=== PATIENT | male | born 1935 | race Caucasian/White ===

== ENCOUNTER 2017-02-09 12:17 | Observation (INO) | payer MEDICARE, OTHER ==
[~2017-02-09] VITALS: Ht 182.9 cm; Wt 135.0 kg
[~2017-02-09 12:17] MED LIST: ARIC5TAB PO; ASPI325T PO; BUME2TAB PO; CARV6.25 PO; ENAL5TAB98 PO; FERR324T4 PO; FURO80TA3 PO; LACT20SO4 PO; LORA-392 PO; PHEN25IN IM; PROM1SUP12 PR; PROM25SU8 PO; QUET1TAB67 PO; SPIR25 PO; SUPETAB30 PO; ZOCO40TA PO
[2017-02-09 12:23] VITALS: BP 116/93; PULSE 86; RESP 17; TEMP 97.6; O2SAT 99
--- NOTE | 2017-02-09 12:41 | PD ---
HPI Chief Complaint: Bleeding Time Seen by Provider: 12:41 Travel History International Travel<30 days: No Contact w/Intl Traveler<30days: No Traveled to known affect area: No History of Present Illness HPI 81-year-old male with history of CVA, dementia, A. fib, on XARELTO, acute psychosis, presents to emergency department from the alf for evaluation. Patient was a trauma alert this morning after a fall at his residential facility. He sustained a 15 cm frontal scalp laceration. Trauma workup was essentially negative except for the laceration. This was repaired and the patient was observed and discharged back to the facility. He returns for continued bleeding of the laceration. Patient has developed a large frontal hematoma with ecchymosis extending into the superior eyelids with associated edema. Patient is a poor historian. When asked states he is "okay. " There has been no new injury. PFSH Past Medical History Atrial Fibrillation: Yes Heart Rhythm Problems: Yes (SICK SINUS SYNDROME) Cirrhosis: Yes Cerebrovascular Accident: Yes (CVA) Dementia: Yes GERD: Yes Hypertension: Yes Psychiatric: Yes (PSYCHOSIS) Respiratory: Yes (OBSTRUCTIVE SLEEP APNEA) Integumentary: Yes (CONTACT DERMATITIS LE, PARONYCHIAL ABSCESSES OF GREAT TOES) Sleep Apnea: Yes Past Surgical History AICD: Yes (2006) Cardiac Surgery: Yes (PACEMAKEER) Pacemaker: Yes Social History Alcohol Use: No Tobacco Use: No Substance Use: No Allergies-Medications (Allergen,Severity, Reaction): Coded Allergies: MRI PRECAUTION (Verified Adverse Reaction, Severe, CARDIAC PACEMAKER, ) Reported Meds & Prescriptions Reported Meds & Active Scripts Active Review of Systems ROS Limitations: Altered Mental Status, Poor Historian Physical Exam Narrative GENERAL: Obese male patient, lying in bed, in no acute distress SKIN: Focused skin assessment warm/dry. HEAD: 15 cm approximated laceration across the frontal scalp with chantelle in place. There is an area at this entry of the laceration that is a persistent trickle of blood . There is a large frontal hematoma extending the entire forehead with ecchymosis extending into the superior eyelids with associated edema. EYES: Pupils equal and round. Patient is able to open eyes. No scleral icterus. No injection or drainage. ENT: No nasal bleeding or discharge. Mucous membranes pink and moist. NECK: Trachea midline. No JVD. CARDIOVASCULAR: Regular rate and irregular rhythm. No murmur appreciated. RESPIRATORY: No accessory muscle use. Clear to auscultation. Breath sounds equal bilaterally. GASTROINTESTINAL: Abdomen soft, non-tender, nondistended. Hepatic and splenic margins not palpable. MUSCULOSKELETAL: No obvious deformities. No clubbing. No cyanosis. No edema. NEUROLOGICAL: Arousable. Unable to assess cranial nerves. Clear but limited speech. Data Data Last Documented VS Vital Signs Date Time Temp Pulse Resp B/P Pulse Ox O2 Delivery O2 Flow Rate FiO2 02/09/17 16:28 Room Air 02/09/17 16:27 78 16 149/65 98 02/09/17 12:23 97.6 Orders Iv Access Insert/Monitor (02/09/17 12:38) Wound Care (02/09/17 12:38) Hgb & Hct (02/09/17 12:38) Gelatin 12 Mm/7 Mm Top (Gelfoam 12 Mm/7 (02/09/17 15:15) Hgb & Hct (02/09/17 15:57) Admit Order (Ed Use Only) (02/09/17 16:53) Labs Laboratory Tests Test 02/09/17 02/09/17 12:55 16:00 Hemoglobin 11.7 GM/DL 10.8 GM/DL Hematocrit 36.0 % 31.9 % MDM Medical Decision Making Medical Screen Exam Complete: Yes Emergency Medical Condition: Yes Medical Record Reviewed: Yes Differential Diagnosis hypocoagulable state versus hemorrhage versus arterial bleed versus hematoma Narrative Course 81-year-old male presents to the emergency department for evaluation of persistent bleeding from a laceration sustained from a fall earlier this morning. The patient was seen and evaluated following this incident as a trauma alert. He does have a large 15 cm laceration across the frontal scalp with chantelle in place. It is well approximated. There is persistent bleeding from the center aspect of the laceration. This is a slow trickle. I have reviewed Dick arzola labs from this morning and patient's hemoglobin has stopped 11.7. I have applied pressure without success. Clotting powder was applied with minimal results. A pressure dressing is applied. Patient continues to bleed Gelfoam was applied. After 20 more minutes of pressure, it appears that the bleeding has stopped. Hemoglobin was rechecked and has dropped again to 10.8. Due to patient's Xarelto use and bleeding with a consistent drop in his hemoglobin, we feel it is in the patient's best interest to be admitted observation for serial hemoglobin and to ensure the bleeding has stopped. I spoke with Dr. Yost, trauma surgeon cooler conveyor loader who saw the patient on his most recent visit this morning. He agrees observation status with the benefit of the patient but requested admission to medicine. I spoke with EMERITA Benz. Patient will be admitted to the [facility]. Diagnosis Primary Impression: Laceration of head Qualified Code: S01.01XD - Laceration of scalp without foreign body, subsequent encounter Additional Impressions: Bleeding Anticoagulated by anticoagulation treatment Admitting Information Admitting Physician Requests: Observation Condition: Stable Tashia Gonzalez Feb 09, 2017 12:41
[2017-02-09 13:06] LABS: REVIEW FLAG FINAL
[2017-02-09] MEDS ORDERED: GELATIN 12 MM/7 MM FOAM TOPICAL ONE (15:15)
[2017-02-09 16:18] LABS: HEMATOCRIT 31.9 % (39.0-51.0); REVIEW FLAG FINAL
[2017-02-09 16:27] VITALS: BP 149/65; PULSE 78; RESP 16; O2SAT 98
[2017-02-09] MEDS ORDERED: SODIUM CHLORIDE 0.9% FLUSH 10 ML FLUSH IV FLUSH PRN (17:30)
[2017-02-09] MEDS ORDERED: BISACODYL 10 MG SUPP RECTAL PRN (17:30)
[2017-02-09] MEDS ORDERED: NALOXONE HCL 0.4 MG/ML AMP IV PRN (17:30)
[2017-02-09] MEDS ORDERED: SENNOSIDES 8.6 MG TAB PO PRN (17:30)
[2017-02-09] MEDS ORDERED: LACTULOSE SYRUP 20 GM/30 ML CUP PO PRN (17:30)
[2017-02-09] MEDS ORDERED: MAGNESIUM HYDROXIDE SUSP 30 ML CUP PO PRN (17:30)
[2017-02-09] MEDS ORDERED: ONDANSETRON HCL 4 MG/2 ML VIAL IVP PRN (17:30)
[2017-02-09] MEDS ORDERED: ACETAMINOPHEN 325 MG TAB PO PRN (17:30)
--- NOTE | 2017-02-09 18:26 | RADRPT ---
EXAM DATE/TIME: 02/09/2017 18:04 [facility] COMPARISON: CT BRAIN W/O CONTRAST, July 21, 2013, 15:36. INDICATIONS : Patient fell last night with head laceration. RADIATION DOSE: 69.18 CTDIvol (mGy) MEDICAL HISTORY : Cerebrovascular disease. Cardiovascular disease Hypertension. SURGICAL HISTORY : None. ENCOUNTER: Initial ACUITY: 1 day PAIN SCALE: 4/10 LOCATION: cranial TECHNIQUE: Multiple contiguous axial images were obtained of the head. Using automated exposure control and adj ustment of the mA and/or kV according to patient size, radiation dose was kept as low as reasonably a chievable to obtain optimal diagnostic quality images. FINDINGS: CEREBRUM: The ventricles are normal for age. No evidence of midline shift, mass lesion, hemorrhage or acute in farction. No extra-axial fluid collections are seen. Encephalomalacia related to old infarcts of the left parietal and temporal lobes again seen.. POSTERIOR FOSSA: The cerebellum and brainstem are intact. The 4th ventricle is midline. The cerebellopontine angle i s unremarkable. EXTRACRANIAL: Large contusion with laceration seen of the frontal scalp. Skin chantelle are present. Chronically opac ified left mastoid bone again noted. SKULL: The calvaria is intact. No evidence of skull fracture. CONCLUSION: 1. No bleed or other acute intracranial abnormality. 2. Large frontal scalp contusion with laceration. Skull is intact. 3. Old, large left parietal and temporal lobe infarct.. Mihai Oreilly MD on February 09, 2017 at 18:22 Board Certified Radiologist. This report was verified electronically.
[2017-02-09 20:00] VITALS: BP 131/61; PULSE 86; RESP 24; TEMP 98.4; O2SAT 99
--- NOTE | 2017-02-09 20:06 | HHI.HP ---
HPI Service [facility] Primary Care Physician Baldo Harper M.D. Admission Diagnosis SCALP LAC S/P TA WITH PERSISTENT BLEEDING IN XARELTO Diagnoses: Chief Complaint: scalp laceration bleeding Travel History International Travel<30 Days: No Contact w/Intl Traveler <30 Da: No Traveled to Known Affected Are: No History of Present Illness These a 81-year-old elderly white male from a local residential with history of CVA, dementia, A. fib on Xarelto, obstructive sleep apnea. Patient presented to the emergency room for evaluation for bleeding or laceration. Earlier in the morning, the patient came in as a trauma alert after he had a fall at the residential facility. He sustained a 15 cm frontal scalp laceration , the trauma team worked up and imaging studies were essentially negative. Laceration was repaired, the patient was observed and discharged back to the facility in stable condition. Apparently, patient continued to bleed from the laceration and was sent back here. Patient was noted to have developed a large frontal hematoma with ecchymosis extending into the superior eyelids with associated edema. Patient is a poor historian, he has no complaints. There is been no new injury. Repeat CT of the head was negative. Gelatin foam and pressure was applied. H&H was repeated, it dropped from 11.7-10.8. Request was made to admit patient for observation. Patient is examined, he has no deficits. Bleeding has stopped. Patient is admitted for further evaluation and treatment Review of Systems ROS Limitations: Poor Historian Past Family Social History Past Medical History Liver cirrhosis. Psychosis. Sleep apnea. Stroke. Sick sinus syndrome. Atrial fibrillation. ICD placement by Dr. Licea in February of 2007. Cardiomyopathy with ejection fraction of 30%. Contact dermatitis, paronychial abscess of toes Past Surgical History Cardiac cath Reported Medications Reported Meds & Active Scripts Active Allergies: Coded Allergies: MRI PRECAUTION (Verified Adverse Reaction, Severe, CARDIAC PACEMAKER, ) Active Ordered Medications Inpatient Medications Acetaminophen (Tylenol) 650 mg Q4H PRN PO TEMP > 100.4; Start 02/09/17 at 17:30 Bisacodyl (Dulcolax Supp) 10 mg DAILY PRN RECTAL SEVERE CONSITIPATION; Start at 17:30 Gelatin (Gelfoam 12 Mm/7 Mm Top) 1 foam ONCE ONCE TOPICAL Last administered on 02/09/17t 15:41; Start 02/09/17 at 15:15; Stop 02/09/17 at 15:17; Status DC Lactulose (Lactulose Liq) 30 ml DAILY PRN PO SEVERE CONSITIPATION; Start at 17:30 Magnesium Hydroxide (Milk Of Magnesia Liq) 30 ml Q12H PRN PO MILD - MODERATE CONSTIPATION; Start 02/09/17 at 17:30 Naloxone HCl (Narcan Inj) 0.4 mg UNSCH PRN IV SEE LABEL COMMENTS; Start at 17:30 Ondansetron HCl (Zofran Inj) 4 mg Q6H PRN IVP NAUSEA OR VOMITING; Start at 17:30 Senna/Docusate Sodium (Oly-Colace) 1 tab BID PO ; Start 02/09/17 at 21:00 Sennosides (Senokot) 17.2 mg Q12H PRN PO MODERATE - SEVERE CONSTIPATION; Start 02/09/17 at 17:30 Sodium Chloride (NS Flush) 2 ml BID IV FLUSH ; Start 02/09/17 at 21:00 Family History unable to obtain Social History Lives at [facility], no document hx of ETOH, substance abuse, smoking. Physical Exam Vital Signs Vital Signs Date Time Temp Pulse Resp B/P Pulse Ox O2 Delivery O2 Flow Rate FiO2 02/09/17 16:28 Room Air 02/09/17 16:27 78 16 149/65 98 Room Air 02/09/17 12:23 97.6 86 17 116/93 99 Physical Exam GENERAL: This is a obese male. SKIN: Laceration and bruising. Stasis dermatitis and ulcerations to legs. Toe nails with ulcerated areas. HEAD: Laceration across forehead, no active bleeding. Frontal scalp hematoma. Periorbital swelling and bruising. EYES: Pupils equal round and reactive. Extraocular motions intact. No scleral icterus. No injection or drainage. Periorbital swelling and bruising. ENT: Nose without bleeding, purulent drainage or septal hematoma. Throat without erythema, tonsillar hypertrophy or exudate. Uvula midline. Airway patent. NECK: Trachea midline. No JVD or lymphadenopathy. Supple, nontender, no meningeal signs. CARDIOVASCULAR: Regular rate and rhythm without murmurs, gallops, or rubs. RESPIRATORY: Poor inspiratory effort. GASTROINTESTINAL: Abdomen soft, non-tender, nondistended. No hepato-splenomegaly , or palpable masses. No guarding. MUSCULOSKELETAL: Lower extremities with 2+ pitting edema. Pedal pulses 2+. No other joint abnormality. NEUROLOGICAL:Awake, oriented to self only. Follows simple commands. Laboratory Laboratory Tests Test 02/09/17 02/09/17 12:55 16:00 Hemoglobin 11.7 10.8 Hematocrit 36.0 31.9 Result Diagram: 02/09/17 1600 Imaging Last Impressions Head CT 02/09/17 0000 Signed Impressions: Service Date/Time: Thursday, February 09, 2017 18:04 - CONCLUSION: 1. No bleed or other acute intracranial abnormality. 2. Large frontal scalp contusion with laceration. Skull is intact. 3. Old, large left parietal and temporal lobe infarct.. Mihai Oreilly MD Assessment and Plan Problem List: (1) Bleeding (2) Laceration of head (3) Anticoagulated by anticoagulation treatment (4) Atrial fibrillation (5) Dementia (6) Contact dermatitis (7) Leg ulcer (8) History of CVA with residual deficit (9) Cardiomyopathy (10) HTN (hypertension) Assessment and Plan Admitted to Dr. Roldan 81-year-old elderly white male sent back from residential for bleeding laceration that occurred early this morning. Patient now has a large frontal hematoma with ecchymosis and swelling over the eyelids. CT of the head negative. Bleeding has stopped. Hemoglobin dropped from 11.7-10.8. Patient was on Xarelto. -Monitor laceration for recurrent bleeding Repeat H&H -Hold Xarelto -Monitor neuro status Chronic A. fib, stable Monitor, resume medications Hx CVA, stable -monitor neuro checks Hypertension, stable -Resume home medications Cardiomyopathy Resume home medication Chronic venous stasis dermatitis with leg and toe ulcerations -Continue with wound care. Home medications reviewed, initiated as indicated Plan of care discussed with attending and registered nurse. Further management of the patient will be dependent on the hospital course If patient remains stable, he will likely be discharged back to his facility in the morning This patient was seen by myself and Dr. Roldan, this H&P is written on her behalf Problem Qualifiers (1) Laceration of head: Qualified Code: S01.01XD - Laceration of scalp without foreign body, subsequent encounter (2) Atrial fibrillation: Qualified Code: I48.91 - Atrial fibrillation, unspecified type (3) Dementia: Qualified Code: F03.90 - Dementia without behavioral disturbance, unspecified dementia type (4) Contact dermatitis: Qualified Code: L25.9 - Contact dermatitis, unspecified contact dermatitis type , unspecified trigger (5) Cardiomyopathy: Qualified Code: I42.9 - Cardiomyopathy, unspecified type (6) HTN (hypertension): Qualified Code: I10 - Essential hypertension Azucena Reyna Feb 09, 2017 20:06
[2017-02-09] MEDS: DOCUSATE SODIUM 50 MG/SENNA 8.6 MG TAB PO SCH (21:00)
[2017-02-09] MEDS: SODIUM CHLORIDE 0.9% FLUSH 10 ML FLUSH IV FLUSH SCH (21:00)
[2017-02-10 00:13] VITALS: BP 143/65; PULSE 80; RESP 16; TEMP 98.4; O2SAT 94
[2017-02-10 00:41] LABS: HEMATOCRIT 30.2 % (39.0-51.0); REVIEW FLAG FINAL
[2017-02-10 04:33] VITALS: BP 121/96; PULSE 89; RESP 24; TEMP 98.1; O2SAT 96
[2017-02-10 07:34] VITALS: BP 119/63; PULSE 77; RESP 17; TEMP 98; O2SAT 94
--- NOTE | 2017-02-10 08:07 | HHI.PR ---
Subjective Remarks awake, oriented x 2 more alert today has no complaints when asked no acute changes overnight no fever no neuro changes Objective Objective Results - Vital Signs Date Time Temp Pulse Resp B/P Pulse Ox O2 Delivery O2 Flow Rate FiO2 02/10/17 07:34 98.0 77 17 119/63 94 02/10/17 04:33 98.1 89 24 121/96 96 02/10/17 00:13 98.4 80 16 143/65 94 02/09/17 20:00 98.4 86 24 131/61 99 02/09/17 16:28 Room Air 02/09/17 16:27 78 16 149/65 98 Room Air 02/09/17 12:23 97.6 86 17 116/93 99 Result Diagram: 02/10/17 0027 Imaging Last Impressions Head CT 02/09/17 0000 Signed Impressions: Service Date/Time: Thursday, February 09, 2017 18:04 - CONCLUSION: 1. No bleed or other acute intracranial abnormality. 2. Large frontal scalp contusion with laceration. Skull is intact. 3. Old, large left parietal and temporal lobe infarct.. Mihai Oreilly MD Other Results Laboratory Tests Test 02/09/17 02/09/17 02/10/17 12:55 16:00 00:27 Hemoglobin 11.7 10.8 10.1 Hematocrit 36.0 31.9 30.2 ROS General: Other (12 point ROS difficult to obtain ) Physical Exam Physical Exam GENERAL: This is a obese male. SKIN: Laceration and bruising. Stasis dermatitis and ulcerations to legs. Toe nails with ulcerated areas. HEAD: Laceration across forehead, no active bleeding. Frontal scalp hematoma. Periorbital swelling and bruising. EYES: Pupils equal round and reactive. Extraocular motions intact. No scleral icterus. No injection or drainage. Periorbital swelling and bruising. ENT: Nose without bleeding, purulent drainage or septal hematoma. Throat without erythema, tonsillar hypertrophy or exudate. Uvula midline. Airway patent. NECK: Trachea midline. No JVD or lymphadenopathy. Supple, nontender, no meningeal signs. CARDIOVASCULAR: Regular rate and rhythm without murmurs, gallops, or rubs. RESPIRATORY: Poor inspiratory effort. GASTROINTESTINAL: Abdomen soft, non-tender, nondistended. No hepato-splenomegaly , or palpable masses. No guarding. MUSCULOSKELETAL: Lower extremities with 2+ pitting edema. Pedal pulses 2+. No other joint abnormality. NEUROLOGICAL:Awake, oriented to self only. Follows simple commands. Urinary Catheter: No Vascular Central Line Catheter: No A/P Diagnosis: (1) Bleeding (2) Laceration of head (3) Anticoagulated by anticoagulation treatment (4) Atrial fibrillation (5) Dementia (6) Contact dermatitis (7) Leg ulcer (8) History of CVA with residual deficit (9) Cardiomyopathy (10) HTN (hypertension) Assessment and Plan 81-year-old elderly white male sent back from snf for bleeding laceration that occurred early this morning. Patient now has a large frontal hematoma with ecchymosis and swelling over the eyelids. CT of the head negative. Bleeding has stopped. Hemoglobin dropped from 11.7-10.8. Patient was on Xarelto. -Monitor laceration for recurrent bleeding, no bleeding overnight HH stable, 10 -Hold Xarelto -Monitor neuro status-stable, no changes from baseline -bleeding stopped, ok for dc Chronic A. fib, stable Monitor, resume medications Hx CVA, stable -monitor neuro checks Hypertension, stable -Resume home medications Cardiomyopathy Resume home medication Chronic venous stasis dermatitis with leg and toe ulcerations -Continue with wound care. CM for dc planning pt. stable, not bleeding anymore resume Xarelto in the morning pt. at high for fall and further injury on Xarelto. F/U PCP D/W RN D/W Dr. Roldan D/W pt This patient was seen by myself and Dr. Roldan, this note is written on her behalf Problem Qualifiers (1) Laceration of head: Qualified Code: S01.01XD - Laceration of scalp without foreign body, subsequent encounter (2) Atrial fibrillation: Qualified Code: I48.91 - Atrial fibrillation, unspecified type (3) Dementia: Qualified Code: F03.90 - Dementia without behavioral disturbance, unspecified dementia type (4) Contact dermatitis: Qualified Code: L25.9 - Contact dermatitis, unspecified contact dermatitis type , unspecified trigger (5) Cardiomyopathy: Qualified Code: I42.9 - Cardiomyopathy, unspecified type (6) HTN (hypertension): Qualified Code: I10 - Essential hypertension Azucena Reyna Feb 10, 2017 08:07
--- NOTE | 2017-02-10 08:08 | HHI.DCPOC ---
Discharge Care Plan Diagnosis: (1) Atrial fibrillation (2) Dementia (3) Bleeding (4) Cardiomyopathy (5) Contact dermatitis (6) HTN (hypertension) (7) Leg ulcer (8) Laceration of head (9) Anticoagulated by anticoagulation treatment (10) History of CVA with residual deficit Your Health Problems Are: Skin Breakdown Inflammation Swelling Bleeding Tendency Goals to Promote Your Health * To prevent worsening of your condition and complications * To maintain your health at the optimal level Directions to Meet Your Goals Take your medications as prescribed Follow your dietary instruction Follow activity as directed Keep your appointments as scheduled Take your immunizations and boosters as scheduled If your symptoms worsen call your PCP, if no PCP go to Urgent Care Center or Emergency Room Smoking is Dangerous to Your Health. Avoid second hand smoke Call the 24-hour hour crisis hotline for domestic abuse at Azucena Reyna Feb 10, 2017 08:08
[2017-02-10] MEDS ORDERED: XARE20TA PO (08:27)
[2017-02-10] MEDS ORDERED: FENO160T PO (08:27)
[2017-02-10] MEDS ORDERED: FURO1TAB60 PO (08:27)
[2017-02-10] MEDS ORDERED: LACT10SO PO (08:27)
[2017-02-10] MEDS ORDERED: FERR325T86 PO (08:27)
[2017-02-10] MEDS ORDERED: ASPI81CH CHEW (08:27)
[2017-02-10] MEDS ORDERED: CARV3.125 PO (08:27)
[2017-02-10] MEDS ORDERED: VITA100064 PO (08:27)
[2017-02-10] MEDS ORDERED: CALCTAB19 PO (08:27)
[2017-02-10] MEDS ORDERED: LISI10TA3 PO (08:27)
[2017-02-10] MEDS ORDERED: GAS-CAP3 PO ×2 (08:27)
[2017-02-10] MEDS ORDERED: ARIC23TA PO (08:27)
[2017-02-10] MEDS: SODIUM CHLORIDE 0.9% FLUSH 10 ML FLUSH IV FLUSH SCH (09:00)
[2017-02-10] MEDS: DOCUSATE SODIUM 50 MG/SENNA 8.6 MG TAB PO SCH (09:00)
[2017-02-10 09:05] LABS: HEMATOCRIT 30.7 % (39.0-51.0); REVIEW FLAG FINAL
[2017-02-10 09:28] LABS: BICARBONATE 27.6 MEQ/L (21.0-32.0); POTASSIUM 4.2 MEQ/L (3.5-5.1)
[2017-02-10] MEDS ORDERED: CARVEDILOL 3.125 MG TAB PO SCH (09:30)
[2017-02-10] MEDS ORDERED: LISINOPRIL 10 MG TAB PO SCH (09:45)
[2017-02-10] MEDS ORDERED: FENOFIBRATE 145 MG TAB PO SCH (09:45)
[2017-02-10] MEDS ORDERED: DONEPEZIL HCL 5 MG TAB PO SCH (09:45)
[2017-02-10] MEDS ORDERED: FUROSEMIDE 40 MG TAB PO SCH (09:45)
[2017-02-10 11:31] VITALS: BP 141/64; PULSE 79; RESP 18; TEMP 97.6; O2SAT 100
[2017-02-11] MEDS ORDERED: CALCIUM/VITAMIN D 250 MG/125 U TAB PO SCH (09:00)
[2017-02-11] MEDS ORDERED: CHOLECALCIFEROL (VIT D3) 1000 UNIT TAB PO SCH (09:00)
== END 2017-02-10 16:41 | disposition home or self-care (01) ==
LOC: NEPE 12:17 → NEDA 16:55 → NEPHCDU 18:58
PROVIDERS: ADMIT Internal Medicine; ATTEND Internal Medicine
DX: S01.01XA Laceration without foreign body of scalp, initial encounter (principal); I48.2 Chronic atrial fibrillation; I42.9 Cardiomyopathy, unspecified; I10 Essential (primary) hypertension; I87.8 Other specified disorders of veins; L30.9 Dermatitis, unspecified; F03.90 Unspecified dementia, unspecified severity, without behavioral disturbance, psychotic disturbance, mood disturbance, and anxiety; L25.9 Unspecified contact dermatitis, unspecified cause; W19.XXXA Unspecified fall, initial encounter; Y92.009 Unspecified place in unspecified non-institutional (private) residence as the place of occurrence of the external cause; K74.60 Unspecified cirrhosis of liver; L97.509 Non-pressure chronic ulcer of other part of unspecified foot with unspecified severity; Z86.73 Personal history of transient ischemic attack (TIA), and cerebral infarction without residual deficits; Z95.0 Presence of cardiac pacemaker; Z79.01 Long term (current) use of anticoagulants
CPT/HCPCS: 12005; 70450; 80048; 85014; 85018; 97163; 99285; G0378; G8987; G8988